=== PATIENT | male | born 1975 | race Caucasian/White ===

== ENCOUNTER → 2018-08-11 | Outpatient (CLI) | payer OTHER, SELFPAY ==
[2016-10-07 18:27] VITALS: BMI 28.2
[2018-08-11 17:21] LABS: Absolute Lymphocyte Count 2.57 X10^3/ul (0.83-4.51); Absolute Neutrophil Count 3.7 X10^3/uL (2.0-7.7); Basophil# 0.04 X10^3/uL; Basophil% 0.6 % (0-1); Eosinophil# 0.15 X10^3/uL; Eosinophils% 2.1 % (0-5); Hematocrit 41.5 % (40-54); Hemoglobin 13.9 g/dl (13.0-16.5); Lymphocyte # 2.57 X10^3/ul (4.0); Lymphocyte % 36.1 % (19-41); Mean Corp Hgb Conc 33.5 g/gl (32-36); Mean Corpuscular Volume 89.4 fL (80-94); Mean Platelet Vol. 10.1 fl (6.2-12.0); Monocyte# 0.66 X10^3/uL; Monocyte% 9.3 % (0-10); Neutrophil # 3.68 X10^3/uL (2.7-7.7); Neutrophil % 51.8 % (47-70); Platelet Count 234 K/mm3 (150-450); RBC Distribution Width CV 14.2 % (11.6-14.6); RBC Distribution Width SD 46.9 fl (35.1-43.9); Red Blood Count 4.64 M/mm3 (4.6-6.2); White Blood Count 7.1 K/mm3 (4.4-11.0)
[2018-08-11 17:32] LABS: POSITIVE COUNT NO; POSITIVE DIFFERENTIAL NO; POSITIVE MORPHOLOGY NO
[2018-08-11 17:41] LABS: Cholesterol 172 mg/dL (200); High Density Lipoprotein 28 mg/dL; Triglycerides 213 mg/dL; Very Low Density Lipoprotein 43 mg/dL (5-40)
== END | disposition home or self-care (01) ==
LOC: MFPLAB 16:50
PROVIDERS: Family Provider Family Medicine; Visit Provider Family Medicine
DX: E34.9 Endocrine disorder, unspecified (principal)
CPT/HCPCS: 36415; 80061; 84403; 85025

== ENCOUNTER 2024-07-30 18:52 | Inpatient (IN) | payer OTHER, SELFPAY ==
[2024-07-30] VITALS (11 sets, daily range): BP systolic 136–185; BP diastolic 82–91; PULSE 85–107; RESP 17–28; TEMP 36.7–37.8; O2SAT 95–98; BMI 30.6; BMI 30.7
--- NOTE | 2024-07-30 18:58 | EKG12_ITS ---
Test Reason : DYSRHYTHMIA Blood Pressure : */* mmHG Vent. Rate : 93 BPM Atrial Rate : 93 BPM P-R Int : 122 ms QRS Dur : 104 ms QT Int : 340 ms P-R-T Axes : 56 99 45 degrees QTcB Int : 422 ms Normal sinus rhythm Rightward axis Incomplete right bundle branch block Borderline ECG Confirmed by Erwin Rincon ([id number]), technical writer and editor ROLANDA PEREIRA ([id number]) on 08/03/2024 10:39:28 AM Referred By: Confirmed By: Erwin Rincon
--- NOTE | 2024-07-30 18:59 | CT_ITS ---
PROCEDURE: STROKE CTA HEAD AND NECK W/CON 07/30/2024 REASON FOR EXAM: NEURO DEFICIT, ACUTE, STROKE SUSPECTED TECHNIQUE: CTA HEAD AND NECK WITH IV CONTRAST: Multiplanar and multisequence images were obtained. CONTRAST: Isovue 370 VOLUME: 100 mL. One or more dose reduction techniques were used (e.g., Automated exposure control, adjustment of the mA and/or kV according to patient size, use of iterative reconstruction technique). RADIATION DOSE SUMMARY: CTDlvol: 20.76+ 19.98 mGy DLP: 836.10 mGycm COMPARISON: None. Correlation with same day CT head. FINDINGS: AORTIC ARCH: Patent. EXTRACRANIAL CAROTIDS: Patent. RIGHT ICA Maximum stenosis (NASCET): 0 % LEFT ICA Maximum stenosis (NASCET): 0 % SKULL BASE: Intact INTRACRANIAL VASCULATURE Cerebral Arteries: Patent [place]: Patent VERTEBROBASILAR SYSTEM: Patent NONVASCULAR:Mild degenerative changes of the visualized spine. CT/STROKE CTA Head AND Neck W/Con IMPRESSION: No acute arterial abnormalities of the head or neck. Reading Location: [place] [id number]
--- NOTE | 2024-07-30 19:00 | CT_ITS ---
PROCEDURE: STROKE BRAIN/HEAD WITHOUT CONT 07/30/2024 REASON FOR EXAM: NEURO DEFICIT, ACUTE, STROKE SUSPECTED TECHNIQUE: Head CT without intravenous contrast. Coronal and Sagittal reconstruction series were provided. One or more dose reduction techniques were used (e.g., Automated exposure control, adjustment of the mA and/or kV according to patient size, use of iterative reconstruction technique. RADIATION DOSE SUMMARY: CTDlvol: 44.99 mGy DLP: 897.35 mGycm COMPARISON: None. FINDINGS: Brain: Normal. No evidence of acute hemorrhage or infarction. CSF Spaces: Normal Sinuses/Mastoids: Clear at visualized levels Bones: The calvarial vault and skull base are intact. CT/STROKE Brain/Head without Cont IMPRESSION: No acute intracranial abnormalities. Reading Location: [place] [address]
--- NOTE | 2024-07-30 19:00 | EDS_ITS ---
HPI History of Present Illness Chief Complaint: Stroke Alert Informant: patient Onset/Context/Timing Onset: Today Context: Sudden Onset Timing: Waxes and wanes Quality and Location: Positive for Left Arm Parasthesia, Left Arm Weakness and - (Dizziness) Onset: 529 today Worsened by: Nothing Relieved by: Nothing Associated Symptoms Associated Symptoms: Negative for Headache, Nausea, Vomiting or Chest Pain Narrative Narrative: Patient presents with strokelike symptoms that began today. Patient states he woke up around 3 AM today. Patient states around 5:30 AM he noted some dizziness and some paresthesias in his left arm and leg. Patient states the paresthesias improved when he remained dizzy throughout the day. Patient states that he fell in his yard today while doing yard work and noted some left upper and lower extremity weakness. Patient states this began approximately 1 hour prior to arrival. Patient denies any chest pain or shortness of breath. Patient denies any nausea or vomiting. Patient denies any headaches. PFSH PFSH Home Medications ?Medication ?Instructions ?Recorded ?Last Taken ?Type NK 07/30/24 Unknown History Allergy/AdvReac Type Severity Reaction Status Date / Time No Known Allergies Allergy Verified 07/30/24 19:24 Surgical History History of herniorrhaphy Social History Smoking Status: Current every day smoker tobacco type: cigarettes ROS ROS ED Constitutional Constitutional ED: Reports sweats; Denies chills or fever(s) Eyes Eyes: Reports blurry vision; Denies diplopia ENT ENT ED: Reports rhinorrhea; Denies sore throat Cardiovascular Cardiovascular: Denies chest pain or palpitations Respiratory/Chest Respiratory/Chest: Denies cough or dyspnea Gastrointestinal Gastrointestinal: Denies nausea or vomiting Genitourinary Genitourinary ED: Denies dysuria or hematuria Musculoskeletal Musculoskeletal: Reports neck pain; Denies back pain Integumentary Denies abscess or rash Neurologic Neurologic: Reports paresthesias and weakness; Denies headache(s) Allergic/Immunologic Allergic/Immunologic ED: Denies mouth swelling or urticaria EXAM Physical Exam Const Vital Signs: 07/30/24 18:54 07/30/24 19:01 07/30/24 19:12 Temperature 98.5 F 98.5 F Temperature Source Temporal Temporal Pulse Rate 107 H Respiratory Rate 19 H Blood Pressure 140/84 H Blood Pressure Mean 102 Pulse Ox 98 Oxygen Delivery Method Room Air Room Air 07/30/24 19:17 07/30/24 19:21 07/30/24 19:30 Temperature Temperature Source Pulse Rate 95 93 91 Respiratory Rate 23 H 28 H 23 H Blood Pressure 185/83 H 150/90 H 154/91 H Blood Pressure Mean 117 110 112 Pulse Ox 97 95 98 Oxygen Delivery Method Room Air Room Air Room Air 07/30/24 19:30 07/30/24 20:00 07/30/24 20:00 Temperature Temperature Source Pulse Rate 91 Respiratory Rate 18 Blood Pressure 154/91 H 150/88 H 150/88 H Blood Pressure Mean 112 108 108 Pulse Ox 97 Oxygen Delivery Method Room Air Positive well nourished and well developed Constitutional Narrative: BMI is 30.6. General Appearance ED: well developed and NAD HEENT Reports moist mucous membranes Eyes EOMs intact bilaterally Neck supple and no JVD Resp normal respiratory effort and clear to auscultation bilaterally Cardio Rate: regular rate Rhythm: regular rhythm GI soft to palpation, non-tender and non-distended Extremity normal to inspection General Extremety ED: Negative for edema or tenderness General Extremity: Negative for edema Neuro oriented x3 and CN's II-XII intact bilaterally Neuro Narrative: There was weakness of the left upper and lower extremities. There was some decrease sensation to light touch in the left upper and lower extremities. Sam Coma Scale: document GCS findings Spontaneous Obeys Commands Oriented 15 Sensorium / Orientation: alert Speech: speech normal Psych mental status grossly normal MDM MDM MDM Narrative Medical decision making narrative: Stroke alert was called from triage. Patient was evaluated there. Differential diagnosis includes stroke, vertigo, electrolyte abnormality, hypoglycemia, coagulopathy, cardiac dysrhythmia, cardiac ischemia, and dehydration. CT scan of the brain will be obtained to assess for intracranial bleeding and stroke. CTA of the head and neck will be obtained to assess for large vessel occlusion a nd carotid stenosis. EKG will be obtained to assess for cardiac dysrhythmia and cardiac ischemia. CBC will be obtained to assess for leukocytosis and anemia. Basic metabolic profile will be obtained to assess for electrolyte abnormality and renal function. High-sensitivity troponin will be obtained to assess for cardiac ischemia. 2-hour repeat high-sensitivity troponin will be obtained to assess for ongoing cardiac ischemia. PT with INR PTT will be obtained to assess for coagulopathy. Lab Data Attestation: I reviewed the patient's lab results. Lab results narrative: CBC was reviewed and was within normal limits. Basic metabolic profile was reviewed and was within normal limits. PT with INR and PTT were reviewed and were within normal limits. High-sensitivity troponin was reviewed and was normal at 9. Labs: Laboratory Results - last 24 hr 07/30/24 18:56 WBC 5.9 RBC 4.86 Hgb 15.1 Hct 43.8 MCV 90.1 MCH 31.1 MCHC 34.5 RDW Std Deviation 47.6 H RDW Coeff of Adelfo 14.5 Plt Count 195 MPV 9.9 Immature Gran % (Auto) 0.300 Neut % (Auto) 69.3 Lymph % (Auto) 18.4 L [place] % (Auto) 11.1 H Eos % (Auto) 0.2 Baso % (Auto) 0.7 Absolute Neuts (auto) 4.1 Absolute Lymphs (auto) 1.09 Nucleated RBC % 0 PT 13.8 INR 1.0 APTT 30.1 Sodium 135 Potassium 3.9 Chloride 99 Carbon Dioxide 24.8 Anion Gap 11 BUN 8 Creatinine 1.03 Estim Creat Clear Calc 121.18 Est GFR (MDRD) Non-Af 90 BUN/Creatinine Ratio 8.2 L Glucose 102 H Calcium 9.0 Troponin T High Sens 9 Radiography Diagnostic Testing: Clinical Impression(s) from Imaging Studies Head/Neck CTA 07/30/24 18:59 IMPRESSION: No acute arterial abnormalities of the head or neck. Reading Location: [id number] Brain CT 07/30/24 19:00 IMPRESSION: No acute intracranial abnormalities. Reading Location: [id number] CT scan of the brain was obtained. There is no acute intracranial abnormality. This was interpreted by the radiologist and was also independently reviewed by myself. CTA of the head and neck was obtained. There are no acute abnormalities noted. There is no large vessel occlusion. There is no carotid stenosis. This was interpreted by the radiologist and was also independently reviewed by myself. EKG Initial EKG: Attestation: I personally reviewed and interpreted this EKG as follows: Interpretation: Sinus Rhythm (93) and RBBB (Incomplete) Comments: EKG was obtained. On my independent interpretation, it showed a normal sinus rhythm with a rate of 93. UT interval, QRS interval, and QTc intervals were all normal. [place] was borderline right axis deviation at 99. There are no acute ST or T wave changes. Prior EKG tracings: not available for review Prior: No Prior Management Discussion w/another healthcare provider: Hospitalist and Bolt Machine Operator Treatment and Re-Evaluation Narrative: Case was discussed with stroke neurologist at [facility]. He recommended giving the patient aspirin and Plavix. This was ordered. He recommended admitting the patient to the hospital for further stroke evaluation. Case was discussed with the hospitalist. He will admit the patient for observation. Patient and family understood and were agreeable with the plan. All questions were answered. Discharge Plan Triage Chief Complaint: Stroke Alert ED Provider: Mario Moy Dx/Rx/DC Orders Clinical Impression: Stroke, Elevated blood pressure reading without diagnosis of hypertension, Dizziness Prescriptions: No Action NK Primary Care Provider: Dean Becerra Referrals: Dean Becerra MD [Primary Care Provider] - Print Language: Sami Disposition Disposition: Acute Care Hospital [facility] NIHSS NIHSS 1a. Level of Consciousness: 0 - Alert; keenly responsive 1b. LOC Questions: 0 - Answers BOTH questions correctly 1c. LOC Commands: 0 - Performs BOTH tasks correctly 2. Best Gaze: 0 - Normal 4. Facial Palsy: 0 - Normal symmetrical movements 5a. Left Arm: 1 - Drift; arm drifts downward but doesn?t hit the bed 5b. Right Arm: 0 - No drift; arm holds 90 (or 45) degrees for full 10 seconds 6a. Left Le - Some effort against gravity; 6b. Right Le - No drift; leg holds 30-degree position for full 5 seconds 8. Sensory: 1 - [id number] sensory loss; 9. Best Language: 0 - No aphasia; normal 10. Dysarthria: 0 - Normal 11. Extinction and Inattention: 0 - No abnormality Total: 4 Stroke Questions Stroke Team Activated: Yes Reviewed Inclusion/Exclusion criteria: Yes
[2024-07-30 19:04] LABS: Absolute Lymphocyte Count 1.09 X10^3/uL (0.83-4.51); Absolute Neutrophil Count 4.1 X10^3/uL (2.0-7.7); Basophil# 0.04 X10^3/uL; Basophil% 0.7 % (0-1); Eosinophil# 0.01 X10^3/uL; Eosinophils% 0.2 % (0-5); Hematocrit 43.8 % (40-54); Hemoglobin 15.1 g/dL (13.0-16.5); Lymphocyte # 1.09 X10^3/ul (0.83-4.51); Lymphocyte % 18.4 % (19-41); Mean Corp Hgb Conc 34.5 g/dL (32-36); Mean Corpuscular Hgb 31.1 pg (27.0-32.0); Mean Corpuscular Volume 90.1 fL (80-94); Mean Platelet Vol. 9.9 fl (6.2-12.0); Monocyte# 0.66 X10^3/uL; Monocyte% 11.1 % (0-10); NRBC Flagged by Analyzer 0 % (0-5); Neutrophil % 69.3 % (47-70); Platelet Count 195 K/mm3 (150-450); RBC Distribution Width CV 14.5 % (11.6-14.6); RBC Distribution Width SD 47.6 fl (35.1-43.9); Red Blood Count 4.86 M/mm3 (4.6-6.2); White Blood Count 5.9 K/mm3 (4.4-11.0)
--- NOTE | 2024-07-30 19:10 | ED.RN ---
19.8 [facility] called that pt back from imaging.
--- NOTE | 2024-07-30 19:12 | ED.RN ---
[facility] notified that patient is back in the room.
[2024-07-30 19:15] LABS: Prothrombin Time (Protime)PT. 13.8 SECONDS (11.7-14.9)
[2024-07-30 19:16] LABS: Partial Thromboplast Time 30.1 Seconds (24.1-36.2)
[2024-07-30 19:25] LABS: Anion Gap 11 (5-15); BUN 8 mg/dL (4-19); BUN/Creat Ratio 8.2 RATIO (10-20); Carbon Dioxide 24.8 mmol/L (21.0-32.0); Chloride 99 mmol/L (98-108); Creatinine, Serum 1.03 mg/dL (0.70-1.20); EST Glomerular Filtration Rate 90 (>60); Estimated Creatinine Clearance 121.18 ml/min (50-250); Glucose 102 mg/dL (70-99); Potassium 3.9 mmol/L (3.3-5.1); Sodium Level 135 mmol/L (133-145); Troponin T High Sensitivity 9 ng/L (<=22)
--- NOTE | 2024-07-30 19:29 | CM.ED ---
Social work Reason for referral: stroke alert This SW responded to stroke alert called for patient in triage. This SW introduced self and role at [facility] to patient's , Leticia. SW led Leticia back to patient's room while patient went to imaging. Leticia stated patient has never experienced anything similar to a stroke in the past. Leticia stated wanting to call EMS, but patient refused and Leticia brought patient in their vehicle instead. SW offered active listening and empathic support. SW to follow as needed. Amy Pineda, FIRE SPRINKLER FITTER, ENVIRONMENTAL SCIENCE TECHNICIAN
[2024-07-30] MEDS: Clopidogrel Bisulfate 300 MG Tablet PO (19:30)
[2024-07-30] MEDS: Aspirin 325 MG Tablet PO (19:30)
--- NOTE | 2024-07-30 20:42 | HP.PCM.HOS_ITS ---
HPI - General General Date of Admission: 07/30/24 HPI Narrative SHOAIB DE LEÓN, is a 49 M who presents to the hospital with numbness and weakness in his left upper and lower extremity. He woke up this morning around 3 AM and first noticed symptoms around 5:30 AM. He presented to the hospital after he fell at home while trying to do some yard work. In the ER workup has been fairly benign, troponins were unremarkable and CTA of the head and neck as well as CT of the brain were normal. He states that his symptoms have improved during the day, he is able to lift his left lower extremity which he said before was very difficult. He denies any recent illnesses, no fevers, chills, shortness of breath. Denies any chest pain PFSH Home Medications ?Medication ?Instructions ?Recorded ?Last Taken ?Type NK 07/30/24 Unknown History Allergy/AdvReac Type Severity Reaction Status Date / Time No Known Allergies Allergy Verified 07/30/24 19:24 Family History (Updated 07/30/24 @ 22:[address] Isreal Mcknight MD) Other Cancer Heart disease Surgical History History of herniorrhaphy Social History Smoking Status: Current every day smoker tobacco type: cigarettes ROS Constitutional Constitutional: Denies chills, fatigue, fever(s) or malaise Eyes Eyes: Denies blurry vision ENT HEENT: Denies headache(s) or nasal discharge Cardiovascular Cardiovascular: Denies chest pain, dyspnea on exertion or syncope Respiratory/Chest Respiratory/Chest: Denies cough, shortness of breath at rest or shortness of breath with exertion Gastrointestinal Gastrointestinal: Denies constipation, diarrhea, nausea or vomiting Genitourinary Genitourinary: Denies dysuria Neurologic Neurologic: Reports focal weakness, numbness and paresthesias; Denies tremor(s) Psychiatric Psychiatric: Denies anxiety or depression Vital Signs Vital Signs Vital Signs: 07/30/24 18:54 07/30/24 19:01 07/30/24 19:12 Temperature 98.5 F 98.5 F Temperature Source Temporal Temporal Pulse Rate 107 H Respiratory Rate 19 H Blood Pressure 140/84 H Blood Pressure Mean 102 Pulse Ox 98 Oxygen Delivery Method Room Air Room Air 07/30/24 19:17 07/30/24 19:21 07/30/24 19:30 Temperature Temperature Source Pulse Rate 95 93 91 Respiratory Rate 23 H 28 H 23 H Blood Pressure 185/83 H 150/90 H 154/91 H Blood Pressure Mean 117 110 112 Pulse Ox 97 95 98 Oxygen Delivery Method Room Air Room Air Room Air 07/30/24 19:30 07/30/24 20:00 07/30/24 20:00 Temperature Temperature Source Pulse Rate 91 Respiratory Rate 18 Blood Pressure 154/91 H 150/88 H 150/88 H Blood Pressure Mean 112 108 108 Pulse Ox 97 Oxygen Delivery Method Room Air 07/30/24 20:30 07/30/24 20:30 07/30/24 20:37 Temperature 98.0 F Temperature Source Pulse Rate 89 95 92 Respiratory Rate 18 21 H 17 Blood Pressure 144/89 H 144/89 H 144/89 H Blood Pressure Mean 107 107 107 Pulse Ox 97 95 96 Oxygen Delivery Method Room Air Room Air Weight Weight: 251 lb 5.231 oz Body Mass Index (BMI) 30.6 Physical Exam Narrative General: Alert, Oriented x3, Cooperative, No apparent distress HEENT: Atraumatic, PERRLA, EOMI, Normocephalic Oral: Moist Mucosa Neck: Supple, No JVD Lungs: Diminished, Normal air movement, No rhonchi, No wheeze, No rales Cardiovascular: Regular rate, Regular Rhythm, Normal S1, Normal S2, No murmurs Abdomen: Soft, Non Tender, Non-Distended, No Hepato-splenomegaly Extremities: No edema, Capillary Refill Less than 3 Seconds Skin: No rashes, No breakdown Musculoskeletal: No Tenderness to Palpation of Joints or Extremities Neurological: Right upper and lower extremities have no deficits, left upper and lower extremities are weak with numbness and diminished sensation Psych/Mental Status: Normal Affect, Appropriate Results Lab / Micro Data 07/30/24 18:56 07/30/24 18:56 Labs: Laboratory Results - last 24 hr 07/30/24 18:56: WBC 5.9, RBC 4.86, Hgb 15.1, Hct 43.8, MCV 90.1, MCH 31.1, MCHC 34.5, RDW Std Deviation 47.6 H, RDW Coeff of Adelfo 14.5, Plt Count 195, MPV 9.9, Immature Gran % (Auto) 0.300, Neut % (Auto) 69.3, Lymph % (Auto) 18.4 L, [place] % (Auto) 11.1 H, Eos % (Auto) 0.2, Baso % (Auto) 0.7, Absolute Neuts (auto) 4.1, Absolute Lymphs (auto) 1.09, Nucleated RBC % 0, PT 13.8, INR 1.0, APTT 30.1, Sodium 135, Potassium 3.9, Chloride 99, Carbon Dioxide 24.8, Anion Gap 11, BUN 8, Creatinine 1.03, Estim Creat Clear Calc 121.18, Est GFR (MDRD) Non-Af 90, B UN/Creatinine Ratio 8.2 L, Glucose 102 H, Calcium 9.0, Troponin T High Sens 9 Imaging Radiology Impression Head/Neck CTA 07/30/24 18:59 IMPRESSION: No acute arterial abnormalities of the head or neck. Reading Location: [id number] Brain CT 07/30/24 19:00 IMPRESSION: No acute intracranial abnormalities. Reading Location: [id number] Assessment & Plan Assessment/Plan (1) Stroke: PLAN: Plan 1. CVA rule out/tobacco abuse ? Continue with the stroke protocol, will consult neurology in the morning ? Continue with MRI, and echo in the morning ? Will monitor his blood pressure, he does not take any medications it was little bit elevated here in the ER, would recommend outpatient follow-up and if it still elevated after discharge then initiate therapy ? Continue with aspirin and Plavix for now ? Continue with high-dose statin, lipid panel is pending ? Discussed cessation DVT: SCDs Charges/Coding Visit Charges Inpatient E&M: 62801 Init Hosp L2
[2024-07-30 21:38] LABS: Troponin T High Sens 2 HR 10 ng/L (<=22)
--- NOTE | 2024-07-30 22:09 | ECHOD_ITS ---
Reason For Study Reason For Study: TIA/CVA Procedure This was a 2D Doppler, Color Flow transthoracic echocardiogram. Exam performed portable in patient room. Left Ventricle Normal left ventricle. The estimated ejection fraction is 55???60 %. Right Ventricle Normal right ventricle. Normal systolic function. Atria Normal left atrium. Normal right atrium. Bubble contrast study is negative for PFO/ASD. Mitral Valve The mitral valve is structurally normal. No prolapse or stenosis seen. Tricuspid Valve Normal tricuspid valve. Aortic Valve Trisinus/trileaflet aortic valve. Pulmonic Valve The pulmonic valve is not well visualized. Great Vessels The aortic root is not well visualized. Pericardium/Pleural No pericardial effusion. Medication Performed a rapid injection of agitated mix of 9 cc saline and 1cc air to assess for atrial septal defect. MMode/2D Measurements & Calculations LVIDd: 4.5 cm IVSd: 1.2 cm Ao root diam: 3.2 cm LVIDs: 3.0 cm LVPWd: 1.2 cm RVDd: 3.6 cm FS: 32.5 % LAV(MOD-bp): 60.9 ml LVAd ap4: 34.2 cm2 LVAd ap2: 28.9 cm2 LAV(MOD-bp) Indexed: 24.9 ml/m2 LVLd ap4: 8.2 cm LVLd ap2: 8.3 cm LAV(MOD-sp2): 61.0 ml EDV(MOD-sp4): 120.7 ml EDV(MOD-sp2): 84.9 ml LAV(MOD-sp4): 61.0 ml EDV(sp4-el): 121.3 ml EDV(sp2-el): 85.2 ml LVAs ap4: 19.2 cm2 LVAs ap2: 14.8 cm2 LVLs ap4: 6.8 cm LVLs ap2: 6.2 cm ESV(MOD-sp4): 47.8 ml ESV(MOD-sp2): 32.4 ml ESV(sp4-el): 45.8 ml ESV(sp2-el): 29.9 ml EF(MOD-sp4): 60.4 % EF(MOD-sp2): 61.8 % EF(sp4-el): 62.2 % SV(MOD-sp4): 72.9 ml SV(MOD-sp2): 52.4 ml SV(sp4-el): 75.5 ml SI(MOD-sp4): 29.8 ml/m2 SI(MOD-sp2): 21.4 ml/m2 LA A4 area: 20.9 cm2 RA A4 area: 18.0 cm2 TAPSE: 2.7 cm Time Measurements MV dec time: 0.22 sec Doppler Measurements & Calculations MV E max rené: 66.1 cm/sec Lat Peak E' René: 12.7 cm/sec Med Peak E' René: 12.6 cm/sec MV A max rené: 76.0 cm/sec E/E' lat: 5.2 E/E' med: 5.2 MV E/A: 0.87 MV V2 max: 83.7 cm/sec MV P1/2t max rené: 72.9 cm/sec Ao V2 max: 134.3 cm/sec MV max P.8 mmHg MV P1/2t: 65.5 msec Ao max P.2 mmHg MV V2 mean: 43.7 cm/sec MV dec slope: 326.1 cm/sec2 Ao V2 mean: 87.6 cm/sec MV mean P.91 mmHg MVA(P1/2t): 3.4 cm2 Ao mean P.5 mmHg MV V2 VTI: 24.9 cm Ao V2 VTI: 23.1 cm AV (velocity ratio): 0.69 LV V1 max: 96.3 cm/sec PA V2 max: 94.6 cm/sec LV V1 max P.7 mmHg LV V1 mean P.7 mmHg LV V1 mean: 62.1 cm/sec LV V1 VTI: 15.9 cm ECHO/Echo Complete Interpretation Summary The estimated ejection fraction is 55???60 %. Normal LV systolic function No significant valvular abnormality Bubble study performed which is negative with no intracardiac shunt. No previou s echo to compare Ordering Physician: Isreal Mcknight Referring Physician: Dean Becerra Performed By: Harjit, Lawanda, RDCS, RVT
[2024-07-30 23:53] LABS: Troponin T High Sens 4 HR 13 ng/L (<=22)
[2024-07-31] VITALS (9 sets, daily range): BP systolic 111–137; BP diastolic 64–80; PULSE 76–90; RESP 16–18; TEMP 36.6–39.3; O2SAT 90–96; BMI 30.7
[2024-07-31] MEDS: Acetaminophen 325 MG Tablet 650 MG PO ×3 (02:36→16:36)
[2024-07-31] MEDS: Atorvastatin Calcium 80 MG Tablet PO ×2 (02:36→17:53)
[2024-07-31] MEDS: 0.9% Saline Lock 10 ML Syringe IV (02:37)
[2024-07-31 06:27] LABS: Cholesterol 163 mg/dL (<=200); High Density Lipoprotein 23 mg/dL; Low Density Lipoprotein Calc. 114 mg/dL; Triglycerides 126 mg/dL; Very Low Density Lipoprotein 25 mg/dL (5-40); cholesterol:hdl ratio screen 6.97
[2024-07-31 07:20] LABS: Bedside Glucose 90 mg/dL (74-106)
[2024-07-31 09:03] LABS: Hematocrit 43.5 % (40-54); Hemoglobin 14.9 g/dL (13.0-16.5); Mean Corp Hgb Conc 34.3 g/dL (32-36); Mean Corpuscular Hgb 30.7 pg (27.0-32.0); Mean Corpuscular Volume 89.7 fL (80-94); Mean Platelet Vol. 9.6 fl (6.2-12.0); Platelet Count 173 K/mm3 (150-450); RBC Distribution Width CV 14.6 % (11.6-14.6); Red Blood Count 4.85 M/mm3 (4.6-6.2); White Blood Count 5.7 K/mm3 (4.4-11.0)
[2024-07-31] MEDS: Clopidogrel Bisulfate 75 MG Tablet PO (09:13)
[2024-07-31] MEDS: Aspirin 81 MG TAB.CHEW PO (09:13)
[2024-07-31 09:39] LABS: Anion Gap 10 (5-15); BUN 12 mg/dL (4-19); BUN/Creat Ratio 11.5 RATIO (10-20); Calcium,Total 8.8 mg/dL (7.6-11.0); Carbon Dioxide 22.8 mmol/L (21.0-32.0); Chloride 99 mmol/L (98-108); Creatinine, Serum 1.02 mg/dL (0.70-1.20); EST Glomerular Filtration Rate 91 (>60); Estimated Creatinine Clearance 122.57 ml/min (50-250); Glucose 105 mg/dL (70-99); Potassium 4.1 mmol/L (3.3-5.1); Sodium Level 132 mmol/L (133-145)
--- NOTE | 2024-07-31 10:00 | MRI_ITS ---
PROCEDURE: BRAIN WITHOUT CONTRAST 07/31/2024 REASON FOR EXAM: CVA TECHNIQUE: Noncontrast brain MRI. Multiplanar and multisequence images were obtained. COMPARISON: None. FINDINGS: Brain: Normal signal intensities. No evidence of acute hemorrhage or infarction. Ventricles: Mild global parenchymal atrophy. Sinuses/mastoids: Mild ethmoid, sphenoid, and frontal sinus mucosal thickening. Small partial right mastoid effusion. MRI/Brain without Contrast IMPRESSION: No acute intracranial abnormality. Reading Location: [id number]
--- NOTE | 2024-07-31 10:15 | CASEMGMT ---
RANJEET CHAVEZ Face to Face with patient for initial transition planning/care coordination assessment. RANJEET CHAVEZ introduced self and role at [facility]. Patient lying in bed, alert and oriented and being transported to MRI. Patient gave permission to complete assessment with who is in patient's room. willing to participate in assessment and is able to answer all questions appropriately. Care providers, pharmacy, and demographics verified. Strata: 1 PCP: [facility] Specialists: none Preferred Pharmacy: [facility] Insurance: [employer] Prescription Benefit: yes Living Will/HPOA: none LNOK: Living Arrangements: Patient lives with in a mobile home with 2 steps to enter. Patient was independent at home. Transportation: self, DME/HHC: Patient has access to cane at home, may benefit from walker, agreeable to [employer] if in-network for walker at discharge. No previous HHC or SNF Patient wishes to discharge home, will monitor progress with therapy. CM discussed outpatient vs rehab unit pending progress with therapy. states she has no further needs or concerns at this time. CM to follow for discharge planning needs that may arise. Disposition Plan: TBD pending progress with therapy, anticipate outpatient therapy with [facility]. Jaimee MORRIS, RN, CM
[2024-07-31 10:22] LABS: Bedside Glucose 127 mg/dL (74-106)
--- NOTE | 2024-07-31 11:39 | CASEMGMT ---
Social Work Pt completed PHQ-9 w/SW. Pt scored a 4, all symptoms are attributed to what has been going on w/pt medically. Symptoms at this time not indicative of depression. Resources not needed at this time. SW remains available should any needs arise. PREM Jones
--- NOTE | 2024-07-31 12:02 | NEURO.CONS ---
Assessment and Plan: Neuro Assessment/Plan SHOAIB DE LEÓN is a 49 M who is being evaluated by Teleneurology for transient dizziness with L arm and leg weakness/numbness. Symptoms resolved Diagnosis: TIA Plan: Outside the window for lytics. CTA with no LVO or significant arterial stenosis. Agree with brain MRI Wo contrast to rule out a stroke Agree with ASA and Plavix for 21 days followed by ASA as a monotherapy Agree with statin for secondary stroke prevention Agree with TTE Keep on tele while inpatient Recommend 30 days event monitor upon discharge Normotension is the goal PT/OT/COLLEGE RECRUITER evaluation Stroke education and vascular risk factors modification [id number] Follow up in Neurology clinic in 4-6 weeks after discharge I personally attended this patient and spent a total time of 55 minutes evaluating this patient including clinical assessment, review of chart, medical history imaging, and determining appropriate treatment and workup. HPI Consult Data Date of Consult: 07/31/24 HPI Narrative HPI Narrative: SHOAIB DE LEÓN, is a 49 M who is here following an episode of dizziness followed by L arm and leg paresthesias and heaviness. He denied any associated facial droop, slurred speech or word-finding difficulties. His symptoms have resolved. He denied any complaints this am. [facility] Home Medications ?Medication ?Instructions ?Recorded ?Last Taken ?Type NK 07/30/24 Unknown History Allergy/AdvReac Type Severity Reaction Status Date / Time No Known Allergies Allergy Verified 07/30/24 19:24 Family History (Updated 07/30/24 @ 22:[address] Isreal Mcknight MD) Other Cancer Heart disease Surgical History History of herniorrhaphy Social History Smoking Status: Current every day smoker tobacco type: cigarettes Vital Signs Vital Signs Vital Signs: 07/30/24 18:54 07/30/24 19:01 07/30/24 19:12 Temperature 98.5 F 98.5 F Temperature Source Temporal Temporal Pulse Rate 107 H Respiratory Rate 19 H Respiratory Effort Respiratory Depth Respiratory Pattern Blood Pressure 140/84 H Blood Pressure Mean 102 Blood Pressure Source Blood Pressure Position Blood Pressure Location Pulse Ox 98 Oxygen Delivery Method Room Air Room Air 07/30/24 19:17 07/30/24 19:21 07/30/24 19:30 Temperature Temperature Source Pulse Rate 95 93 91 Respiratory Rate 23 H 28 H 23 H Respiratory Effort Respiratory Depth Respiratory Pattern Blood Pressure 185/83 H 150/90 H 154/91 H Blood Pressure Mean 117 110 112 Blood Pressure Source Blood Pressure Position Blood Pressure Location Pulse Ox 97 95 98 Oxygen Delivery Method Room Air Room Air Room Air 07/30/24 19:30 07/30/24 20:00 07/30/24 20:00 Temperature Temperature Source Pulse Rate 91 Respiratory Rate 18 Respiratory Effort Respiratory Depth Respiratory Pattern Blood Pressure 154/91 H 150/88 H 150/88 H Blood Pressure Mean 112 108 108 Blood Pressure Source Blood Pressure Position Blood Pressure Location Pulse Ox 97 Oxygen Delivery Method Room Air 07/30/24 20:30 07/30/24 20:30 07/30/24 20:37 Temperature 98.0 F Temperature Source Pulse Rate 89 95 92 Respiratory Rate 18 21 H 17 Respiratory Effort Respiratory Depth Respiratory Pattern Blood Pressure 144/89 H 144/89 H 144/89 H Blood Pressure Mean 107 107 107 Blood Pressure Source Blood Pressure Position Blood Pressure Location Pulse Ox 97 95 96 Oxygen Delivery Method Room Air Room Air 07/30/24 21:00 07/30/24 21:00 07/30/24 21:30 Temperature Temperature Source Pulse Rate 85 92 Respiratory Rate 19 H 20 H Respiratory Effort Respiratory Depth Respiratory Pattern Blood Pressure 140/88 H 140/88 H 144/82 H Blood Pressure Mean 105 105 102 Blood Pressure Source Blood Pressure Position Blood Pressure Location Pulse Ox 97 96 Oxygen Delivery Method Room Air Room Air 07/30/24 21:30 07/30/24 22:10 07/30/24 22:10 Temperature 100.0 F H Temperature Source Oral Pulse Rate 87 87 Respiratory Rate 22 H Respiratory Effort Respiratory Depth Respiratory Pattern Blood Pressure 144/82 H 136/83 H Blood Pressure Mean 102 100 Blood Pressure Source Monitor Blood Pressure Position Supine Blood Pressure Location Left Arm Pulse Ox 96 Oxygen Delivery Method Room Air 07/30/24 22:22 07/31/24 02:10 07/31/24 02:10 Temperature 102.7 F H 102.7 F H Temperature Source Oral Oral Pulse Rate 89 89 Respiratory Rate 18 18 Respiratory Effort Normal Non-Labored Respiratory Depth Normal Respiratory Pattern Normal Blood Pressure 136/80 H 136/80 H Blood Pressure Mean 98 98 Blood Pressure Source Monitor Blood Pressure Position Supine Blood Pressure Location Left Arm Pulse Ox 92 94 Oxygen Delivery Method Room Air Room Air Room Air 07/31/24 02:56 07/31/24 03:00 07/31/24 06:24 Temperature 98.1 F Temperature Source Oral Pulse Rate 90 77 Respiratory Rate 16 Respiratory Effort Respiratory Depth Respiratory Pattern Blood Pressure 118/69 Blood Pressure Mean 85 Blood Pressure Source Monitor Blood Pressure Position Supine Blood Pressure Location Left Arm Pulse Ox 95 Oxygen Delivery Method Room Air Room Air 07/31/24 08:02 07/31/24 08:45 07/31/24 09:18 Temperature 98.3 F 98.3 F Temperature Source Oral Oral Pulse Rate 76 76 Respiratory Rate 18 18 Respiratory Effort Respiratory Depth Respiratory Pattern Blood Pressure 124/72 H 124/72 H Blood Pressure Mean 89 89 Blood Pressure Source Monitor Blood Pressure Position Semi-Fowlers Blood Pressure Location Left Arm Pulse Ox 94 90 90 Oxygen Delivery Method Room Air Room Air Room Air 07/31/24 09:23 Temperature Temperature Source Pulse Rate Respiratory Rate Respiratory Effort Normal Non-Labored Respiratory Depth Respiratory Pattern Blood Pressure Blood Pressure Mean Blood Pressure Source Blood Pressure Position Blood Pressure Location Pulse Ox Oxygen Delivery Method Room Air Weight Weight: 114.4 kg Body Mass Index (BMI) 30.7 Physical Exam Narrative Patient is awake and alert, follows commands, EOMI, oriented x3, symmetric face, no arms or legs drift, sensation intact to LT, no dysmetria Lab / Micro Data 07/31/24 08:50 07/31/24 08:50 Labs: Laboratory Results - last 24 hr 07/30/24 18:54: POC Glucose 90 07/30/24 18:56: WBC 5.9, RBC 4.86, Hgb 15.1, Hct 43.8, MCV 90.1, MCH 31.1, MCHC 34.5, RDW Std Deviation 47.6 H, RDW Coeff of Adelfo 14.5, Plt Count 195, MPV 9.9, Immature Gran % (Auto) 0.300, Neut % (Auto) 69.3, Lymph % (Auto) 18.4 L, [place] % (Auto) 11.1 H, Eos % (Auto) 0.2, Baso % (Auto) 0.7, Absolute Neuts (auto) 4.1, Absolute Lymphs (auto) 1.09, Nucleated RBC % 0, PT 13.8, INR 1.0, APTT 30.1, Sodium 135, Potassium 3.9, Chloride 99, Carbon Dioxide 24.8, Anion Gap 11, BUN 8, Creatinine 1.03, Estim Creat Clear Calc 121.18, Est GFR (MDRD) Non-Af 90, BUN/Creatinine Ratio 8.2 L, Glucose 102 H, Calcium 9.0, Troponin T High Sens 9 07/30/24 21:05: Troponin T Hi Sens 2 Hr 10 07/30/24 23:24: Troponin T Hi Sens 4Hr 13 07/31/24 05:38: Triglycerides 126, Cholesterol 163, LDL Cholesterol, Calc 114, VLDL Cholesterol 25, HDL Cholesterol 23 L, Cholesterol/HDL Ratio 6.97 07/31/24 08:50: WBC 5.7, RBC 4.85, Hgb 14.9, Hct 43.5, MCV 89.7, MCH 30.7, MCHC 34.3, RDW Std Deviation 48.0 H, RDW Coeff of Adelfo 14.6, Plt Count 173, MPV 9.6, Sodium 132 L, Potassium 4.1, Chloride 99, Carbon Dioxide 22.8, Anion Gap 10, BUN 12, Creatinine 1.02, Estim Creat Clear Calc 122.57, Est GFR (MDRD) Non-Af 91, BUN/Creatinine Ratio 11.5, Glucose 105 H, Calcium 8.8 07/31/24 10:05: POC Glucose 127 H Micro: Microbiology 07/31/24 05:00 Mucosa - Nasopharyngeal Respiratory Panel (PCR) - Final Imaging Radiology Impression Head/Neck CTA 07/30/24 18:59 IMPRESSION: No acute arterial abnormalities of the head or neck. Reading Location: [id number] Brain CT 07/30/24 19:00 IMPRESSION: No acute intracranial abnormalities. Reading Location: [id number] Active Medications Active Medications Active Medications: Current Medications Generic Name Dose Route Start Last Admin Trade Name Freq PRN Reason Stop Dose Admin Acetaminophen 650 mg 07/31/24 02:22 07/31/24 09:13 Acetaminophen 325 Mg Tablet PO 650 mg Q6H PRN PRN Administration Pain 1-10 or Fever Aspirin 81 mg 07/31/24 08:00 07/31/24 09:13 Aspirin 81 Mg Tab.Chew PO 81 mg BREAKFAST STEPHIE Administration Atorvastatin Calcium 80 mg 07/30/24 22:09 07/31/24 02:36 Atorvastatin Calcium 80 Mg Tablet PO 80 mg QHS STEPHIE Administration Clopidogrel Bisulfate 75 mg 07/31/24 10:00 07/31/24 09:13 Clopidogrel Bisulfate 75 Mg Tablet PO 75 mg DAILY STEPHIE Administration Hydralazine HCl 5 mg 07/30/24 22:09 Hydralazine 20 Mg/Ml Vial IV 07/31/24 22:09 Q30M PRN maintain BP parameters with HR <60 Sodium Chloride 250 mls @ 15 mls/hr 07/31/24 00:52 IV .[id number] PRN Saline Flush Sodium Chloride 250 mls @ 15 mls/hr 07/31/24 00:52 IV .[id number] PRN Additional IVPB Infusion Labetalol HCl 10 - 20 mg 07/30/24 22:09 Labetalol 20 Mg/4 Ml Vial IV 07/31/24 22:09 Q10M PRN PRN maintain BP parameters with HR >/=60 Sodium Chloride 10 - 40 ml 07/31/24 00:52 07/31/24 02:37 0.9% Saline Lock 10 Ml Syringe IV 10 ml UD PRN Administration SALINE FLUSH NIHSS NIHSS Nursing Documentation NIHSS Nursing Documentation: NIHSS: Ischemic Stroke/TIA Start: 07/30/24 22:09 Text: For PCU Patients: NIH and Neuro Check every 4 Status: Active hours, PRN and with change in RN caregiver. Freq: [id number] Protocol: Activity Type Activity Date Activity User E-sign Co-sign Detail Recorded Client Recorded Date Recorded By Document 07/31/24 09:20 [id number] 07/31/24 09:23 07/31/24 09:20 NIH Stroke Scale [NIHSS] A score of 0 is normal or asymptomatic . Total possible score is 42. Inpatient: RN or Physician to activate a stroke alert for onset of new stroke symptoms or with NIHSS increase >/= 3 points. Following change in neurological status, NIHSS will be performed per physician order or more frequently PRN. -1a. Level of Consciousness 0 - Alert; keenly responsive -1b. LOC Questions 0 - Answers BOTH questions correctly -1c. LOC Commands 0 - Performs BOTH tasks correctly -2. Best Gaze 0 - Normal -3. Visual 0 - No visual loss -4. Facial Palsy 0 - Normal symmetrical movements -5a. Left Arm 0 - No drift; arm holds 90 ( or 45) degrees for full 10 seconds -5b. Right Arm 0 - No drift; arm holds 90 ( or 45) degrees for full 10 seconds -6a. Left Leg 0 - No drift; leg holds 30- degree position for full 5 seconds -6b. Right Leg 0 - No drift; leg holds 30- degree position for full 5 seconds -7. Limb Ataxia 0 - Absent -8. Sensory 0 - Normal; no sensory loss -9. Best Language 0 - No aphasia; normal -10. Dysarthria 0 - Normal -11. Extinction and Inattention 0 - No abnormality -Total 0 Query Text:A score of 0 is normal or asymptomatic. Total possible score is 42 . ED: Notify Physician for NIHSS increase by > / = 3 points. Inpatient: RN or Physician to activate a stroke alert for NIHSS increase of > / = 3 points. Coma Scale [Assess] -Eye Opening Spontaneous -Motor Obeys Commands -Verbal Oriented [Total] -Coma Scale Total 15 NIHSS 1a. Level of Consciousness: 0 - Alert; keenly responsive 1b. LOC Questions: 0 - Answers BOTH questions correctly 1c. LOC Commands: 0 - Performs BOTH tasks correctly 2. Best Gaze: 0 - Normal 3. Visual: 0 - No visual loss 4. Facial Palsy: 0 - Normal symmetrical movements 5a. Left Arm: 0 - No drift; arm holds 90 (or 45) degrees for full 10 seconds 5b. Right Arm: 0 - No drift; arm holds 90 (or 45) degrees for full 10 seconds 6a. Left Le - No drift; leg holds 30-degree position for full 5 seconds 6b. Right Le - No drift; leg holds 30-degree position for full 5 seconds 7. Limb Ataxia: 0 - Absent 8. Sensory: 0 - Normal; no sensory loss 9. Best Language: 0 - No aphasia; normal 10. Dysarthria: 0 - Normal 11. Extinction and Inattention: 0 - No abnormality Total: 0
--- NOTE | 2024-07-31 12:13 | NEURO.CONS ---
Assessment and Plan: Neuro Assessment/Plan SHOAIB DE LEÓN is a 49 M with a past medical history of , being evaluated by Teleneurology for Diagnosis: Plan: Transfer to [facility][1] for the following reasons: I personally attended this patient and spent a total time of minutes evaluating this patient including clinical assessment, review of chart, medical history imaging, and determining appropriate treatment and workup. HPI Consult Data Date of Consult: 07/31/24 HPI Narrative HPI Narrative: SHOAIB DE LEÓN, is a 49 M who presents [facility] Home Medications ?Medication ?Instructions ?Recorded ?Last Taken ?Type NK 07/30/24 Unknown History Allergy/AdvReac Type Severity Reaction Status Date / Time No Known Allergies Allergy Verified 07/30/24 19:24 Family History (Updated 07/30/24 @ 22:[address] Isreal Mcknight MD) Other Cancer Heart disease Surgical History History of herniorrhaphy Social History Smoking Status: Current every day smoker tobacco type: cigarettes Vital Signs Vital Signs Vital Signs: 07/30/24 18:54 07/30/24 19:01 07/30/24 19:12 Temperature 98.5 F 98.5 F Temperature Source Temporal Temporal Pulse Rate 107 H Respiratory Rate 19 H Respiratory Effort Respiratory Depth Respiratory Pattern Blood Pressure 140/84 H Blood Pressure Mean 102 Blood Pressure Source Blood Pressure Position Blood Pressure Location Pulse Ox 98 Oxygen Delivery Method Room Air Room Air 07/30/24 19:17 07/30/24 19:21 07/30/24 19:30 Temperature Temperature Source Pulse Rate 95 93 91 Respiratory Rate 23 H 28 H 23 H Respiratory Effort Respiratory Depth Respiratory Pattern Blood Pressure 185/83 H 150/90 H 154/91 H Blood Pressure Mean 117 110 112 Blood Pressure Source Blood Pressure Position Blood Pressure Location Pulse Ox 97 95 98 Oxygen Delivery Method Room Air Room Air Room Air 07/30/24 19:30 07/30/24 20:00 07/30/24 20:00 Temperature Temperature Source Pulse Rate 91 Respiratory Rate 18 Respiratory Effort Respiratory Depth Respiratory Pattern Blood Pressure 154/91 H 150/88 H 150/88 H Blood Pressure Mean 112 108 108 Blood Pressure Source Blood Pressure Position Blood Pressure Location Pulse Ox 97 Oxygen Delivery Method Room Air 07/30/24 20:30 07/30/24 20:30 07/30/24 20:37 Temperature 98.0 F Temperature Source Pulse Rate 89 95 92 Respiratory Rate 18 21 H 17 Respiratory Effort Respiratory Depth Respiratory Pattern Blood Pressure 144/89 H 144/89 H 144/89 H Blood Pressure Mean 107 107 107 Blood Pressure Source Blood Pressure Position Blood Pressure Location Pulse Ox 97 95 96 Oxygen Delivery Method Room Air Room Air 07/30/24 21:00 07/30/24 21:00 07/30/24 21:30 Temperature Temperature Source Pulse Rate 85 92 Respiratory Rate 19 H 20 H Respiratory Effort Respiratory Depth Respiratory Pattern Blood Pressure 140/88 H 140/88 H 144/82 H Blood Pressure Mean 105 105 102 Blood Pressure Source Blood Pressure Position Blood Pressure Location Pulse Ox 97 96 Oxygen Delivery Method Room Air Room Air 07/30/24 21:30 07/30/24 22:10 07/30/24 22:10 Temperature 100.0 F H Temperature Source Oral Pulse Rate 87 87 Respiratory Rate 22 H Respiratory Effort Respiratory Depth Respiratory Pattern Blood Pressure 144/82 H 136/83 H Blood Pressure Mean 102 100 Blood Pressure Source Monitor Blood Pressure Position Supine Blood Pressure Location Left Arm Pulse Ox 96 Oxygen Delivery Method Room Air 07/30/24 22:22 07/31/24 02:10 07/31/24 02:10 Temperature 102.7 F H 102.7 F H Temperature Source Oral Oral Pulse Rate 89 89 Respiratory Rate 18 18 Respiratory Effort Normal Non-Labored Respiratory Depth Normal Respiratory Pattern Normal Blood Pressure 136/80 H 136/80 H Blood Pressure Mean 98 98 Blood Pressure Source Monitor Blood Pressure Position Supine Blood Pressure Location Left Arm Pulse Ox 92 94 Oxygen Delivery Method Room Air Room Air Room Air 07/31/24 02:56 07/31/24 03:00 07/31/24 06:24 Temperature 98.1 F Temperature Source Oral Pulse Rate 90 77 Respiratory Rate 16 Respiratory Effort Respiratory Depth Respiratory Pattern Blood Pressure 118/69 Blood Pressure Mean 85 Blood Pressure Source Monitor Blood Pressure Position Supine Blood Pressure Location Left Arm Pulse Ox 95 Oxygen Delivery Method Room Air Room Air 07/31/24 08:02 07/31/24 08:45 07/31/24 09:18 Temperature 98.3 F 98.3 F Temperature Source Oral Oral Pulse Rate 76 76 Respiratory Rate 18 18 Respiratory Effort Respiratory Depth Respiratory Pattern Blood Pressure 124/72 H 124/72 H Blood Pressure Mean 89 89 Blood Pressure Source Monitor Blood Pressure Position Semi-Fowlers Blood Pressure Location Left Arm Pulse Ox 94 90 90 Oxygen Delivery Method Room Air Room Air Room Air 07/31/24 09:23 Temperature Temperature Source Pulse Rate Respiratory Rate Respiratory Effort Normal Non-Labored Respiratory Depth Respiratory Pattern Blood Pressure Blood Pressure Mean Blood Pressure Source Blood Pressure Position Blood Pressure Location Pulse Ox Oxygen Delivery Method Room Air Weight Weight: 114.4 kg Body Mass Index (BMI) 30.7 EEG Results Procedure Details EEG Procedure Details: SHOAIB DE LEÓN is a 49 year old M with a past medical history of , who presents for evaluation of Electroencephalogram on DATE at TIME Physical Exam Narrative Patient is awake and alert, follows commands, EOMI, oriented x3, symmetric face, no arms or legs drift, sensation intact to LT, no dysmetria Lab / Micro Data 07/31/24 08:50 07/31/24 08:50 Labs: Laboratory Results - last 24 hr 07/30/24 18:54: POC Glucose 90 07/30/24 18:56: WBC 5.9, RBC 4.86, Hgb 15.1, Hct 43.8, MCV 90.1, MCH 31.1, MCHC 34.5, RDW Std Deviation 47.6 H, RDW Coeff of Adelfo 14.5, Plt Count 195, MPV 9.9, Immature Gran % (Auto) 0.300, Neut % (Auto) 69.3, Lymph % (Auto) 18.4 L, [place] % (Auto) 11.1 H, Eos % (Auto) 0.2, Baso % (Auto) 0.7, Absolute Neuts (auto) 4.1, Absolute Lymphs (auto) 1.09, Nucleated RBC % 0, PT 13.8, INR 1.0, APTT 30.1, Sodium 135, Potassium 3.9, Chloride 99, Carbon Dioxide 24.8, Anion Gap 11, BUN 8, Creatinine 1.03, Estim Creat Clear Calc 121.18, Est GFR (MDRD) Non-Af 90, BUN/Creatinine Ratio 8.2 L, Glucose 102 H, Calcium 9.0, Troponin T High Sens 9 07/30/24 21:05: Troponin T Hi Sens 2 Hr 10 07/30/24 23:24: Troponin T Hi Sens 4Hr 13 07/31/24 05:38: Triglycerides 126, Cholesterol 163, LDL Cholesterol, Calc 114, VLDL Cholesterol 25, HDL Cholesterol 23 L, Cholesterol/HDL Ratio 6.97 07/31/24 08:50: WBC 5.7, RBC 4.85, Hgb 14.9, Hct 43.5, MCV 89.7, MCH 30.7, MCHC 34.3, RDW Std Deviation 48.0 H, RDW Coeff of Adelfo 14.6, Plt Count 173, MPV 9.6, Sodium 132 L, Potassium 4.1, Chloride 99, Carbon Dioxide 22.8, Anion Gap 10, BUN 12, Creatinine 1.02, Estim Creat Clear Calc 122.57, Est GFR (MDRD) Non-Af 91, BUN/Creatinine Ratio 11.5, Glucose 105 H, Calcium 8.8 07/31/24 10:05: POC Glucose 127 H Micro: Microbiology 07/31/24 05:00 Mucosa - Nasopharyngeal Respiratory Panel (PCR) - Final Imaging Radiology Impression Head/Neck CTA 07/30/24 18:59 IMPRESSION: No acute arterial abnormalities of the head or neck. Reading Location: [id number] Brain CT 07/30/24 19:00 IMPRESSION: No acute intracranial abnormalities. Reading Location: [id number] Active Medications Active Medications Active Medications: Current Medications Generic Name Dose Route Start Last Admin Trade Name Freq PRN Reason Stop Dose Admin Acetaminophen 650 mg 07/31/24 02:22 07/31/24 09:13 Acetaminophen 325 Mg Tablet PO 650 mg Q6H PRN PRN Administration Pain 1-10 or Fever Aspirin 81 mg 07/31/24 08:00 07/31/24 09:13 Aspirin 81 Mg Tab.Chew PO 81 mg BREAKFAST STEPHIE Administration Atorvastatin Calcium 80 mg 07/30/24 22:09 07/31/24 02:36 Atorvastatin Calcium 80 Mg Tablet PO 80 mg QHS STEPHIE Administration Clopidogrel Bisulfate 75 mg 07/31/24 10:00 07/31/24 09:13 Clopidogrel Bisulfate 75 Mg Tablet PO 75 mg DAILY STEPHIE Administration Hydralazine HCl 5 mg 07/30/24 22:09 Hydralazine 20 Mg/Ml Vial IV 05/30/25 22:09 Q30M PRN maintain BP parameters with HR <60 Sodium Chloride 250 mls @ 15 mls/hr 07/31/24 00:52 IV .[id number] PRN Saline Flush Sodium Chloride 250 mls @ 15 mls/hr 07/31/24 00:52 IV .[id number] PRN Additional IVPB Infusion Labetalol HCl 10 - 20 mg 07/30/24 22:09 Labetalol 20 Mg/4 Ml Vial IV 07/31/24 22:09 Q10M PRN PRN maintain BP parameters with HR >/=60 Sodium Chloride 10 - 40 ml 07/31/24 00:52 07/31/24 02:37 0.9% Saline Lock 10 Ml Syringe IV 10 ml UD PRN Administration SALINE FLUSH NIHSS NIHSS Nursing Documentation NIHSS Nursing Documentation: NIHSS: Ischemic Stroke/TIA Start: 07/30/24 22:09 Text: For PCU Patients: NIH and Neuro Check every 4 Status: Active hours, PRN and with change in RN caregiver. Freq: [id number] Protocol: Activity Type Activity Date Activity User E-sign Co-sign Detail Recorded Client Recorded Date Recorded By Document 07/31/24 09:20 EM [id number] 07/31/24 09:23 EM 07/31/24 09:20 NIH Stroke Scale [NIHSS] A score of 0 is normal or asymptomatic . Total possible score is 42. Inpatient: RN or Physician to activate a stroke alert for onset of new stroke symptoms or with NIHSS increase >/= 3 points. Following change in neurological status, NIHSS will be performed per physician order or more frequently PRN. -1a. Level of Consciousness 0 - Alert; keenly responsive -1b. LOC Questions 0 - Answers BOTH questions correctly -1c. LOC Commands 0 - Performs BOTH tasks correctly -2. Best Gaze 0 - Normal -3. Visual 0 - No visual loss -4. Facial Palsy 0 - Normal symmetrical movements -5a. Left Arm 0 - No drift; arm holds 90 ( or 45) degrees for full 10 seconds -5b. Right Arm 0 - No drift; arm holds 90 ( or 45) degrees for full 10 seconds -6a. Left Leg 0 - No drift; leg holds 30- degree position for full 5 seconds -6b. Right Leg 0 - No drift; leg holds 30- degree position for full 5 seconds -7. Limb Ataxia 0 - Absent -8. Sensory 0 - Normal; no sensory loss -9. Best Language 0 - No aphasia; normal -10. Dysarthria 0 - Normal -11. Extinction and Inattention 0 - No abnormality -Total 0 Query Text:A score of 0 is normal or asymptomatic. Total possible score is 42 . ED: Notify Physician for NIHSS increase by > / = 3 points. Inpatient: RN or Physician to activate a stroke alert for NIHSS increase of > / = 3 points. Coma Scale [Assess] -Eye Opening Spontaneous -Motor Obeys Commands -Verbal Oriented [Total] -Coma Scale Total 15 NIHSS 1a. Level of Consciousness: 0 - Alert; keenly responsive 1b. LOC Questions: 0 - Answers BOTH questions correctly 1c. LOC Commands: 0 - Performs BOTH tasks correctly 2. Best Gaze: 0 - Normal 3. Visual: 0 - No visual loss 4. Facial Palsy: 0 - Normal symmetrical movements 5a. Left Arm: 0 - No drift; arm holds 90 (or 45) degrees for full 10 seconds 5b. Right Arm: 0 - No drift; arm holds 90 (or 45) degrees for full 10 seconds 6a. Left Le - No drift; leg holds 30-degree position for full 5 seconds 6b. Right Le - No drift; leg holds 30-degree position for full 5 seconds 7. Limb Ataxia: 0 - Absent 8. Sensory: 0 - Normal; no sensory loss 9. Best Language: 0 - No aphasia; normal 10. Dysarthria: 0 - Normal 11. Extinction and Inattention: 0 - No abnormality Total: 0
--- NOTE | 2024-07-31 14:28 | CASEMGMT ---
See RN CM assessment and PT/OT evaluations. This RN CM to pt room at this time to follow up on DC planning. Pt resting comfortably in bed and is A&Ox4 and is calm. This RN CM inquired if he would like a FWW. Pt denies. This RN CM inquired if he would be interested in HH or OP therapy. Pt denies. Pt states that he plans to DC home with his with no additional needs at this time of DC and states feeling safe doing so. Pt denies further needs at this time.
--- NOTE | 2024-07-31 15:38 | DS.PCM_ITS ---
Providers Date of Admission: 07/30/24 Date of Discharge: 07/31/24 Primary Care Physician: Dean Becerra MD Consultations 07/30/24 22:09 Consult: Tele-Neurology Routine Consulting Provider: [facility] Reason for Consult: Acute Ischemic Stroke/TIA EMERGENT Consult: No Notified: Yes Date Notified: 07/31/24 Time Notified: 02:30 Method of Notification: Answering Service Comments:: Dr Munson to follow Nursing Unit Staff Notify [facility] of Tele-Neurology Consult: Yes Reason For Visit: CVA WITH CONTINUED DEFICITS Diagnosis Discharge Diagnosis (1) TIA (transient ischemic attack): Status: Acute Code(s): G45.9 - Transient cerebral ischemic attack, unspecified Medications at Discharge Home Medications aspirin 81 mg chewable tablet 81 mg PO BREAKFAST 30 days #30 tabs 07/31/24 atorvastatin 40 mg tablet (Lipitor) 40 mg PO QHS 30 days #30 tabs 07/31/24 clopidogrel 75 mg tablet 75 mg PO DAILY 21 days #21 tabs 07/31/24 Hospital Course Operations None Procedures EKG, Transthoracic echo and - (CT brain, CTA head/neck, MRI brain) Summary of Care Provided Minutes Spent on Discharge: 35 Hospital Course: Patient is a 49-year-old male who presented to [facility] ED on 07/30/2024 with strokelike symptoms. Short hospital course as noted below. Patient discharged home in stable condition on 07/31. 1. Strokelike symptoms, CVA ruled out ? Neurology followed. Presented with dizziness and mild left arm weakness with paresthesias. CT brain and CTA head/neck negative. MRI brain negative. Echo with normal EF, no PFO/ASD, no other concerning findings. Lipid panel with total cholesterol 163, LDL 114, HDL 23. Per neurology, suspected that patient had a TIA. Recommended initiating baby aspirin and high intensity statin. Will also treat with Plavix for 21 days. 30-day cardiac event monitor ordered on discharge. Discharged home in stable condition on 07/31. 2. Tobacco use disorder ? Denied need for NRT while inpatient. Discussed cessation on discharge. 3. Elevated BP without hypertension diagnosis ? BP elevated to the 150s systolic on admission. Improved during admission with systolics maintaining in the 120s to 130s on day of discharge. No need to add any antihypertensive agents at this time. Recommend outpatient follow-up for this. Total clinical time spent by myself addressing the patient's medical issues, reviewing all the data, and collaborating with patient's care team: 35 minutes. Physical Exam Const alert, oriented x3, no apparent distress, healthy appearing and well nourished General Appearance: cooperative, comfortable, well kempt and well developed HEENT normocephalic, head/scalp atraumatic, hearing grossly normal bilaterally, nasal mucous membranes and turbinates normal and moist oral mucous membranes Eyes PERRL, EOMs intact bilaterally and conjunctivae normal Neck full ROM Chest inspection of chest normal Resp normal respiratory effort, normal air movement, no use of accessory muscles and clear to auscultation bilaterally Cardio regular rate, regular rhythm, no murmurs and peripheral pulses 2+ throughout GI normal to inspection, nondistended, normoactive bowel sounds, soft to palpation, non-tender and non-distended Back/Spine normal ROM Extremity normal to inspection, full ROM and no pedal edema Skin no rashes or lesions noted Neuro oriented x3, CN's II-XII intact bilaterally, moves all extremities and no focal motor deficits Speech: speech normal Motor Exam: strength 5/5 throughout Psych mental status grossly normal Weight / BMI Weight Weight: 114.4 kg Body Mass Index (BMI) 30.7 ABG / Lab / Microbiology Data 07/31/24 08:50 07/31/24 08:50 Laboratory: Laboratory Results - last 24 hr 07/31/24 08:50: WBC 5.7, RBC 4.85, Hgb 14.9, Hct 43.5, MCV 89.7, MCH 30.7, MCHC 34.3, RDW Std Deviation 48.0 H, RDW Coeff of Adelfo 14.6, Plt Count 173, MPV 9.6, S odium 132 L, Potassium 4.1, Chloride 99, Carbon Dioxide 22.8, Anion Gap 10, BUN 12, Creatinine 1.02, Estim Creat Clear Calc 122.57, Est GFR (MDRD) Non-Af 91, BUN/Creatinine Ratio 11.5, Glucose 105 H, Calcium 8.8 07/31/24 10:05: POC Glucose 127 H 07/31/24 12:00: Urine Color Yellow, Urine Clarity Sl. Cloudy, Urine pH 6.0, Ur Specific [place] 1.020, Urine Protein 30 H, Urine Glucose (UA) Normal, Urine Ketones Negative, Urine Occult Blood 10 H, Urine Nitrite Negative, Urine Bilirubin Negative, Urine Urobilinogen Normal, Ur Leukocyte Esterase Negative, Urine RBC 0-5 SEEN, Urine WBC 0-5 SEEN, Ur Squamous Epith Cells 0-5 SEEN, Urine Bacteria 2+, Urine Mucus 1+ Microbiology: Microbiology 07/31/24 05:00 Mucosa - Nasopharyngeal Respiratory Panel (PCR) - Final Radiography Diagnostic Testing: Radiology Impression Echocardiogram 07/30/24 22:09 Interpretation Summary The estimated ejection fraction is 55???60 %. Normal LV systolic function No significant valvular abnormality Bubble study performed which is negative with no intracardiac shunt. No previous echo to compare Ordering Physician: Isreal Mcknight Referring Physician: Dean Becerra Performed By: Lawanda Lombardi, MARIA DEL ROSARIOCS, RVT Brain MRI 07/31/24 10:00 IMPRESSION: No acute intracranial abnormality. Reading Location: [place] [address] D/C Instructions DC O2, CPAP, BIPAP Needs Home O2 Discharge instructions: No Meaningful Use Info Meaningful Use Meaningful Use Diagnoses (Choose all that apply): None applicable Ischemic Stroke Statin Dosing Therapy Reference: STATIN DOSE THERAPY REFERENCE: * Patients > 75 years receive moderate or high dose statin therapy. * Patients 75 years or YOUNGER should receive HIGH intensity statin dose unless contraindicated. You will be required to document reason for non-treatment if statin daily dose does not meet guidelines. HIGH DOSE STATIN THERAPY DAILY Atorvastatin > than or = to 40 mg Rosuvastatin > than or = to 20 mg Amlodipine + Atorvastatin > than or = to 2.5/40 mg Ezetimibe + Simvastatin 10/80 mg Simvastatin 80mg Discharge Plan Admission Admit Date/Time: 07/30/24 20:35 Primary Reason for Your Visit: dizziness and left arm weakness/numbness Attending Provider: Stanislav Newman Primary Care Provider: Dean Becerra Consulting Providers: Joon Richards; Atif Chavez; Holly Barnes; Lyudmila Quintanilla; Frances Perez; Johnny Guy; Alicia Noel; Xavi Munson; Vamsi Nice; Rachid Yeh; Lu Calderon; Mat Moss; Mallorie Tobias; Brigid Jeffries; José Luis Wright; Rafy Shields; Yao Fisher; Abilio Alberto; Stephanie Bryan; Tr Gonzalez; Isreal Mcknight Discharge Orders/Prescriptions Prescriptions: New aspirin 81 mg Tablet,Chewable 81 mg PO BREAKFAST 30 Days Qty: 30 2RF atorvastatin [Lipitor] 40 mg tablet 40 mg PO QHS 30 Days Qty: 30 2RF clopidogrel 75 mg Tablet 75 mg PO DAILY 21 Days Qty: 21 0RF Other Ambulatory Orders: 30 Day Event Recorder Preventi (Urgent) Timeframe: 1 Month Facility: [facility] - Location: Cardiovascular Services Ordered By: Dr. Stanislav Newman Referrals / Follow Up: Dean Becerra MD [Primary Care Provider] - Disposition Disposition (needs filled in before D/C Order can be placed): Home, Self Care Charges/Coding Visit Charges Inpatient E&M: 99916 Disch Hosp >30min
--- NOTE | 2024-07-31 15:38 | DCINST_ITS ---
Discharge Instructions Diet Discharge Diet: No restrictions DC O2, CPAP, BIPAP needs Home O2 Discharge instructions: No Dressing / Incision Discharge Activity: No Restrictions Follow Up Care Test Results: Test results from this visit will be discussed in further detail at your follow- up appointment, if applicable. Discharge Plan Admission Admit Date/Time: 07/30/24 20:35 Primary Reason for Your Visit: dizziness and left arm weakness/numbness Attending Provider: Stanislav Newman Primary Care Provider: Dean Becerra Consulting Providers: Joon Richards; Atif Chavez; Holly Barnes; Lyudmila Quintanilla; Frances Perez; Johnny Guy; Alicia Noel; Xavi Munson; Vamsi Nice; Rachid Yeh; Lu Calderon; Mat Moss; Mallorie Tobias; Brigid Jeffries; José Luis Wright; Rafy Shields; Yao Fisher; Abilio Alberto; Stephanie Bryan; Tr Gonzalez; Isreal Mcknight Discharge Orders/Prescriptions Prescriptions: New aspirin 81 mg Tablet,Chewable 81 mg PO BREAKFAST 30 Days Qty: 30 2RF atorvastatin [Lipitor] 40 mg tablet 40 mg PO QHS 30 Days Qty: 30 2RF clopidogrel 75 mg Tablet 75 mg PO DAILY 21 Days Qty: 21 0RF Referrals / Follow Up: Dean Becerra MD [Primary Care Provider] - Disposition Disposition (needs filled in before D/C Order can be placed): Home, Self Care
[2024-08-01 07:12] LABS: Color, Urine Yellow (Yellow); Glucose, Dipstick Normal (Normal); Ketone-Dipstick Negative (Negative); Leukocyte Esterase-Dipstick Negative /ul (Negative); Nitrite-Dipstick Negative (Negative); Occult Blood-Urine 10 /ul (Negative); Protein-Dipstick 30 mg/dl (Negative); Urine Bilirubin Dipstick Negative (Negative); Urine Clarity Sl. Cloudy (Clear); Urine Urobilinogen Normal (Normal)
[2024-08-01 07:32] LABS: White Blood Cells 0-5 SEEN /hpf (0-5)
[2024-08-01 07:33] LABS: Bacteria 2+ /hpf (None Seen); Mucous, Urine 1+ /hpf (<or=2+); Red Blood Cells-Urine 0-5 SEEN /hpf (0-5); Squamous Epithelial Cells - UA 0-5 SEEN /hpf (0-5)
== END 2024-07-31 18:01 | disposition home or self-care (01) | DRG 69 ==
LOC: ED 20:25 → PCU 21:31
PROVIDERS: Admitting Provider Family Medicine; Emergency Provider Emergency Medicine; PCP Family Medicine; Visit Provider Hospitalist
DX: G45.9 Transient cerebral ischemic attack, unspecified (principal); F17.210 Nicotine dependence, cigarettes, uncomplicated; I45.10 Unspecified right bundle-branch block; W19.XXXA Unspecified fall, initial encounter; Y92.007 Garden or yard of unspecified non-institutional (private) residence as the place of occurrence of the external cause; R03.0 Elevated blood-pressure reading, without diagnosis of hypertension
CPT/HCPCS: 36415; 70450; 70496; 70498; 70551; 80048; 80061; 81001; 82962; 84484; 85025; 85027; 85610; 85730; 87086; 87633; 92610; 93005; 93306; 94762; 97162; 97166; 97802; 99285; 99406; Q9957; Q9967; A4216

== ENCOUNTER → 2024-08-31 | Outpatient (CLI) | payer OTHER, SELFPAY ==
[2024-08-31 14:03] LABS: Bacteria 0 SEEN /hpf (None Seen); Mucous, Urine 0 SEEN /hpf (<or=2+)
[2024-08-31 18:06] LABS: Color, Urine Yellow (Yellow); Glucose, Dipstick Normal (Normal); Ketone-Dipstick Negative (Negative); Leukocyte Esterase-Dipstick Negative /ul (Negative); Nitrite-Dipstick Negative (Negative); Occult Blood-Urine 10 /ul (Negative); Protein-Dipstick 15 mg/dl (Negative); Urine Bilirubin Dipstick Negative (Negative); Urine Clarity Sl. Cloudy (Clear); Urine Urobilinogen Normal (Normal)
[2024-08-31 18:16] LABS: Erythrocyte Sedimentation Rate 11 mm/hr (0-20)
[2024-08-31 18:53] LABS: ALB/GLOB Ratio 1.4 RATIO (0.9-2.4); AST(SGOT) 27 U/L (<=37); Alanine Aminotransfer ALT/SGPT 36 U/L (<=46); Albumin, Serum 4.3 g/dL (3.5-5.0); Alkaline Phosphatase 104 U/L (40-129); Anion Gap 12 (5-15); BUN 12 mg/dL (4-19); CRP 4.98 mg/L (0.0-3.0); Calcium,Total 9.2 mg/dL (7.6-11.0); Chloride 103 mmol/L (98-108); Creatinine, Serum 0.86 mg/dL (0.70-1.20); EST Glomerular Filtration Rate 107 (>60); Globulin 3.2 g/dL (2.2-4.2); Glucose 88 mg/dL (70-99); Magnesium 2.3 mg/dL (1.5-2.2); Potassium 3.7 mmol/L (3.3-5.1); Protein, Total 7.5 g/dL (5.9-8.4); Sodium Level 138 mmol/L (133-145); Thyroid Stim Hormone (TSH) 0.878 uIU/mL (0.300-4.200); Total Bilirubin 0.39 mg/dL (0.00-1.30)
[2024-08-31 18:57] LABS: Calcium Oxalate Crystals Ur 1+ /hpf (<or=2+); Red Blood Cells-Urine 0-5 SEEN /hpf (0-5); Squamous Epithelial Cells - UA 0-5 SEEN /hpf (0-5); White Blood Cells 0-5 SEEN /hpf (0-5)
== END | disposition home or self-care (01) ==
LOC: MTLAB 13:59
PROVIDERS: PCP Family Medicine
DX: G45.9 Transient cerebral ischemic attack, unspecified (principal)
CPT/HCPCS: 36415; 80053; 81001; 83036; 83735; 84443; 85652; 86140

== ENCOUNTER → 2025-01-06 | Outpatient (CLI) | payer OTHER, SELFPAY | END | disposition home or self-care (01) | LOC: LABSPEC 15:51 | PROVIDERS: PCP Family Medicine; Referring Provider Surgery; Visit Provider Surgery | DX: L72.3 Sebaceous cyst (principal) | CPT/HCPCS: 87070; 87075; 87205 ==